=== PATIENT | male | born 1975 | race Caucasian/White ===

== ENCOUNTER 2017-03-27 12:08 | Emergency (ER) | payer BC ==
--- NOTE | 2017-03-27 12:51 | EDM.PDOC ---
[id number] 4d LT SHOULDER PAIN/SOB Time Seen by Provider: 03/27/17 12:50 Source of Information: Reports: Patient History Limitations: Reports: No Limitations - History of Present Illness INITIAL COMMENTS - FREE TEXT/NARRATIVE: pt arrived after having an episode of chest pain and palpitation. he was on the way to the clinic when this occurred. Onset: Today, Sudden Duration: Hour(s): Location: Reports: Chest, Upper Extremity, Left Associated Symptoms: Reports: Chest Pain, Other ( shoulder pain. ) Left Shoulder Pain Score (Numeric/FACES): 6 - Related Data Allergies Allergy/AdvReac Type Severity Reaction Status Date / Time No Known Allergies Allergy Verified 03/27/17 12:39 Home Meds: Home Meds Omeprazole Magnesium [Prilosec Otc] 20 mg PO DAILY 03/27/17 [History] Past Medical History - Past Surgical History GI Surgical History: Reports: Hernia Repair/Other Social & Family History - Tobacco Use Smoking Status *Q: Never Smoker - Caffeine Use Caffeine Use: Reports: Coffee - Alcohol Use Days Per Week of Alcohol Use: 1 Number of Drinks Per Day: 4 Total Drinks Per Week: 4 - Recreational Drug Use Recreational Drug Use: No ED ROS GENERAL - Review of Systems Review Of Systems: See Below Constitutional: Reports: No Symptoms HEENT: Reports: No Symptoms Respiratory: Reports: Shortness of Breath Cardiovascular: Reports: Chest Pain Endocrine: Reports: No Symptoms GI/Abdominal: Reports: No Symptoms : Reports: No Symptoms Musculoskeletal: Reports: No Symptoms Skin: Reports: No Symptoms ED EXAM, GENERAL - Physical Exam Exam: See Below Free Text/Narrative:: pt arrived with a history of left shoulder pain and left chest pain with palpapation. Exam Limited By: No Limitations General Appearance: Alert, Mild Distress Ears: Normal TMs Nose: Normal Inspection Throat/Mouth: Normal Inspection Head: Atraumatic Neck: Normal Inspection Respiratory/Chest: No Respiratory Distress Cardiovascular: Other (left side chest pain. feel sob. ) GI/Abdominal: Soft, Non-Tender (Male) Exam: Deferred Rectal (Males) Exam: Deferred Back Exam: Normal Inspection Extremities: Normal Inspection Neurological: Alert, Oriented, Normal Cognition Psychiatric: Normal Affect Course - Vital Signs Last Recorded V/S: Last Vital Signs Temp 35.4 C 03/27/17 12:27 Pulse 74 03/27/17 17:14 Resp 16 03/27/17 14:49 BP 116/72 03/27/17 17:14 Pulse Ox 98 03/27/17 12:27 - Orders/Labs/Meds Orders: Active Orders 24 hr Category Date Time Status EKG Documentation Completion [RC] ASDIRECTED Care 03/27/17 12:51 Active EKG 12 Lead [EK] Routine Ther 03/27/17 12:51 Ordered Labs: Laboratory Tests 03/27/17 03/27/17 03/27/17 Range/Units 12:54 12:54 12:54 WBC 6.5 (4.5-11.0) K/uL RBC 4.88 (4.30-5.90) M/uL Hgb 15.0 (12.0-15.0) g/dL Hct 42.2 (40.0-54.0) % MCV 87 (80-98) fL MCH 31 (27-31) pg MCHC 36 (32-36) % Plt Count 263 (150-400) K/uL Neut % (Auto) 57 (36-66) % Lymph % (Auto) 28 (24-44) % [place] % (Auto) 10 H (2-6) % Eos % (Auto) 4 (2-4) % Baso % (Auto) 1 (0-1) % Sodium 138 L (140-148) mmol/L Potassium 3.9 (3.6-5.2) mmol/L Chloride 103 (100-108) mmol/L Carbon Dioxide 29 (21-32) mmol/L Anion Gap 9.9 (5.0-14.0) mmol/L BUN 15 (7-18) mg/dL Creatinine 1.0 (0.8-1.3) mg/dL Est Cr Clr Drug Dosing 101.39 mL/min Estimated GFR (MDRD) > 60 (>60) Glucose 99 (74-106) mg/dL Calcium 8.8 (8.5-10.1) mg/dL Total Bilirubin 0.5 (0.2-1.0) mg/dL AST 33 (15-37) U/L ALT 61 (12-78) U/L Alkaline Phosphatase 86 (46-116) U/L Creatine Kinase 83 (39-308) U/L Troponin I < 0.017 (0.000-0.056) ng/mL Total Protein 7.4 (6.4-8.2) g/dL Albumin 4.0 (3.4-5.0) g/dL Globulin 3.4 (2.3-3.5) g/dL Albumin/Globulin Ratio 1.2 (1.2-2.2) 03/27/17 Range/Units 16:33 WBC (4.5-11.0) K/uL RBC (4.30-5.90) M/uL Hgb (12.0-15.0) g/dL Hct (40.0-54.0) % MCV (80-98) fL MCH (27-31) pg MCHC (32-36) % Plt Count (150-400) K/uL Neut % (Auto) (36-66) % Lymph % (Auto) (24-44) % [place] % (Auto) (2-6) % Eos % (Auto) (2-4) % Baso % (Auto) (0-1) % Sodium (140-148) mmol/L Potassium (3.6-5.2) mmol/L Chloride (100-108) mmol/L Carbon Dioxide (21-32) mmol/L Anion Gap (5.0-14.0) mmol/L BUN (7-18) mg/dL Creatinine (0.8-1.3) mg/dL Est Cr Clr Drug Dosing mL/min Estimated GFR (MDRD) (>60) Glucose (74-106) mg/dL Calcium (8.5-10.1) mg/dL Total Bilirubin (0.2-1.0) mg/dL AST (15-37) U/L ALT (12-78) U/L Alkaline Phosphatase (46-116) U/L Creatine Kinase (39-308) U/L Troponin I < 0.017 (0.000-0.056) ng/mL Total Protein (6.4-8.2) g/dL Albumin (3.4-5.0) g/dL Globulin (2.3-3.5) g/dL Albumin/Globulin Ratio (1.2-2.2) Meds: Medications Discontinued Medications Generic Name Dose Route Start Last Admin Trade Name Freq PRN Reason Stop Dose Admin Aspirin 324 mg 03/27/17 14:39 03/27/17 14:44 Aspirin PO 03/27/17 14:40 324 mg ONETIME ONE Administration Nitroglycerin 0.4 mg 03/27/17 14:39 03/27/17 14:44 Nitrostat SL 03/27/17 14:50 0.4 mg Q5M PRN Administration Chest Pain - Re-Assessments/Exams Free Text/Narrative Re-Assessment/Exam: 03/27/17 14:43 Pt had a normal trop, minor inferior s-t changes. Her has low grade discomfort. Will give a nitro and asa. His rhythm is stable at this point. Departure - Departure Time of Disposition: 14:44 Disposition: Home, Self-Care 01 Condition: Fair Clinical Impression: Left sided chest pain - Discharge Information Instructions: Nonspecific Chest Pain Referrals: PCP,None [Primary Care Provider] - Forms: ED Department Discharge Care Plan Goals: pt is to return tomorrow for a exercise cardiolyte stress test, If pain should get worse tonight return, . - My Orders Last 24 Hours: My Active Orders 03/27/17 12:51 EKG Documentation Completion [RC] ASDIRECTED EKG 12 Lead [EK] Routine - Assessment/Plan Last 24 Hours: My Active Orders 03/27/17 12:51 EKG Documentation Completion [RC] ASDIRECTED EKG 12 Lead [EK] Routine
--- NOTE | 2017-03-27 13:56 | CR ---
Chest 1V Frontal HISTORY: Left-sided chest pain. Comparison: 01/11/2013. FINDINGS: Cardiac size and pulmonary vessels are normal. The lungs are clear. IMPRESSION: Negative AP chest.
[2017-03-27] MEDS ORDERED: Nitroglycerin 0.4 MG Tab.SL SL PRN (14:39)
[2017-03-27] MEDS ORDERED: Aspirin 81 MG Tab.Chew PO ONE (14:39)
[2017-03-27 17:22] VITALS: BP 116/72
--- NOTE | 2017-03-27 18:20 | PCM.CONS ---
H&P History of Present Illness - General Date of Service: 03/27/17 Source of Information: Patient, Provider, RN Notes Reviewed History Limitations: Reports: No Limitations - History of Present Illness Initial Comments - Free Text/Narative: This patient is a 41-year-old gentleman who I been asked to see by Dr. Staton for further suggestions concerning evaluation and management of recent chest and left shoulder pain. Over the past few weeks as noted pain or an ache in his left shoulder, it was relatively mild in intensity and would occur only in intermittently. He felt that it would be worse after he was active but did not hurt at the time of activity. It has become progressively worse over the past 2 days to the point where it has been present most of the time. He does not feel that there is an exertional component. He does note that when he lies back it seems to be worse. He was coming into the clinic today to have it evaluated when he noted an episode of rapid heart rate with mild nausea and lightheadedness. He did not feel that the pain became significantly worse during this period of time. Initial troponin level is within normal range, EKG shows nonspecific slight ST segment depression in the inferior leads. He has no risk factors for coronary artery disease. Left Shoulder Pain Score (Numeric/FACES): 6 - Related Data Allergies/Adverse Reactions: Allergies Allergy/AdvReac Type Severity Reaction Status Date / Time No Known Allergies Allergy Verified 03/27/17 12:39 Home Medications: Home Meds Omeprazole Magnesium [Prilosec Otc] 20 mg PO DAILY 03/27/17 [History] Past Medical History - Past Surgical History GI Surgical History: Reports: Hernia Repair/Other Social & Family History - Tobacco Use Smoking Status *Q: Never Smoker - Caffeine Use Caffeine Use: Reports: Coffee - Alcohol Use Days Per Week of Alcohol Use: 1 Number of Drinks Per Day: 4 Total Drinks Per Week: 4 - Recreational Drug Use Recreational Drug Use: No H&P Review of Systems - Review of Systems: Review Of Systems: See Below Pulmonary: Reports: No Symptoms. Denies: Shortness of Breath Cardiovascular: Reports: Chest Pain, Palpitations. Denies: Dyspnea on Exertion , Orthopnea, PND, Edema Gastrointestinal: Reports: No Symptoms Genitourinary: Reports: No Symptoms Exam - Exam Exam: See Below - Vital Signs Vital Signs: Last Vital Signs Temp 95.8 F 03/27/17 12:27 Pulse 74 03/27/17 17:14 Resp 16 03/27/17 14:49 BP 116/72 03/27/17 17:14 Pulse Ox 98 03/27/17 12:27 Weight: 196 lb 6.91 oz - Exam General: Alert, Oriented, Cooperative Neck: Supple, Trachea Midline, +2 Carotid Pulse wo Bruit Lungs: Clear to Auscultation, Normal Respiratory Effort Cardiovascular: Regular Rate, Regular Rhythm, Normal S1, Normal S2. No: Systolic Murmur, Diastolic Murmur Abdomen: Normal Bowel Sounds, Soft Back Exam: Normal Inspection, Full Range of Motion, NT - Patient Data Lab Results Last 24 hrs: Laboratory Results - last 24 hr 03/27/17 03/27/17 03/27/17 Range/Units 12:54 12:54 12:54 WBC 6.5 (4.5-11.0) K/uL RBC 4.88 (4.30-5.90) M/uL Hgb 15.0 (12.0-15.0) g/dL Hct 42.2 (40.0-54.0) % MCV 87 (80-98) fL MCH 31 (27-31) pg MCHC 36 (32-36) % Plt Count 263 (150-400) K/uL Neut % (Auto) 57 (36-66) % Lymph % (Auto) 28 (24-44) % [place] % (Auto) 10 H (2-6) % Eos % (Auto) 4 (2-4) % Baso % (Auto) 1 (0-1) % Sodium 138 L (140-148) mmol/L Potassium 3.9 (3.6-5.2) mmol/L Chloride 103 (100-108) mmol/L Carbon Dioxide 29 (21-32) mmol/L Anion Gap 9.9 (5.0-14.0) mmol/L BUN 15 (7-18) mg/dL Creatinine 1.0 (0.8-1.3) mg/dL Est Cr Clr Drug Dosing 101.39 mL/min Estimated GFR (MDRD) > 60 (>60) Glucose 99 (74-106) mg/dL Calcium 8.8 (8.5-10.1) mg/dL Total Bilirubin 0.5 (0.2-1.0) mg/dL AST 33 (15-37) U/L ALT 61 (12-78) U/L Alkaline Phosphatase 86 (46-116) U/L Creatine Kinase 83 (39-308) U/L Troponin I < 0.017 (0.000-0.056) ng/mL Total Protein 7.4 (6.4-8.2) g/dL Albumin 4.0 (3.4-5.0) g/dL Globulin 3.4 (2.3-3.5) g/dL Albumin/Globulin Ratio 1.2 (1.2-2.2) 03/27/17 Range/Units 16:33 WBC (4.5-11.0) K/uL RBC (4.30-5.90) M/uL Hgb (12.0-15.0) g/dL Hct (40.0-54.0) % MCV (80-98) fL MCH (27-31) pg MCHC (32-36) % Plt Count (150-400) K/uL Neut % (Auto) (36-66) % Lymph % (Auto) (24-44) % [place] % (Auto) (2-6) % Eos % (Auto) (2-4) % Baso % (Auto) (0-1) % Sodium (140-148) mmol/L Potassium (3.6-5.2) mmol/L Chloride (100-108) mmol/L Carbon Dioxide (21-32) mmol/L Anion Gap (5.0-14.0) mmol/L BUN (7-18) mg/dL Creatinine (0.8-1.3) mg/dL Est Cr Clr Drug Dosing mL/min Estimated GFR (MDRD) (>60) Glucose (74-106) mg/dL Calcium (8.5-10.1) mg/dL Total Bilirubin (0.2-1.0) mg/dL AST (15-37) U/L ALT (12-78) U/L Alkaline Phosphatase (46-116) U/L Creatine Kinase (39-308) U/L Troponin I < 0.017 (0.000-0.056) ng/mL Total Protein (6.4-8.2) g/dL Albumin (3.4-5.0) g/dL Globulin (2.3-3.5) g/dL Albumin/Globulin Ratio (1.2-2.2) Result Diagrams: 03/27/17 12:54 03/27/17 12:54 Consult PN Assessment/Plan Procedures: Procedures EGD DIAGNOSTIC BRUSH WASH (03/11/14) US EXAM ABDOM COMPLETE (03/09/14) Problem List Initiated/Reviewed/Updated: Yes Plan: ASSESSMENT AND RECOMMENDATIONS CHEST AND LEFT SHOULDER PAIN-pain has been somewhat atypical, he has no risk factors for coronary artery disease. Initial troponin and follow-up troponin 3 hours later are both within normal range, EKG shows only slight nonspecific ST segment change. HEART score is 2. -Given 2 normal troponin levels and a HEART score of 2, he can be safely discharged home. -Schedule exercise Cardiolite study in a.m. -Schedule follow-up appointment with primary care provider within a day or 2 to review results of Cardiolite study. Requesting Provider: SAM Date Consult Requested: 03/27/17 Reason for Consult: Chest pain Patient History Reviewed: Yes Notified Requestor: Yes
== END 2017-03-27 19:21 | disposition home or self-care (01) ==
LOC: JP.ED 12:08
DX: R07.9 Chest pain, unspecified (principal); Z98.890 Other specified postprocedural states; Z79.899 Other long term (current) drug therapy
CPT/HCPCS: 36415; 71010; 80053; 82550; 84484; 85025; 93005; 99285; A9270

== ENCOUNTER → 2019-01-08 | Outpatient (CLI) | payer BC ==
--- NOTE | 2019-01-08 10:36 | NM ---
HEPATOBILIARY SCAN WITH EJECTION FRACTION: Clinical History: Right upper quadrant pain Multiple images of the hepatobiliary system were obtained following the IV injection of 5.22 mCi of technetium 99m Choletec. 60 minutes into the study the patient was given1.82 mcg of CCK via a slow IV push. The this elicited right upper quadrant pain similar to her symptoms]Quantitative analysis of the gallbladder was performed. Findings: There is a normal pattern of hepatic uptake. Biliary activity is seen at 5minutes. Gallbladder activity is seen at 30minutes. Intestinal activity is seen at 15minutes. Following the Kinevac infusion the gallbladder ejection fraction was calculated at 22.1%. Impression:Normal visualization of the hepatobiliary tree The gallbladder ejection fraction wasabnormally low at 22%
== END ==
LOC: JP.NM 07:16
PROVIDERS: ATTEND Internal Medicine Gastroenterology
DX: R10.11 Right upper quadrant pain (principal); G89.29 Other chronic pain
CPT/HCPCS: 78227; 78227-26

== ENCOUNTER 2019-07-11 17:37 | Emergency (ER) | payer BC ==
[2019-07-11] MEDS ORDERED: Ibuprofen 600 MG Tab PO ONE (18:33)
[2019-07-11 18:46] VITALS: BP 119/70; PULSE 85
--- NOTE | 2019-07-11 19:00 | EDM.PDOC ---
ED HPI GENERAL MEDICAL PROBLEM - General Chief Complaint: Upper Extremity Injury/Pain Stated Complaint: L ARM PAIN Time Seen by Provider: 07/11/19 18:30 Source of Information: Reports: Patient History Limitations: Reports: No Limitations - History of Present Illness INITIAL COMMENTS - FREE TEXT/NARRATIVE: 43-year-old male with left-sided arm pain for the past 2-3 days, left-sided chest discomfort which is persistent. He cannot reproduce the pain with breathing or movement of his arm. He has no significant shortness of breath, diaphoresis, nausea or vomiting. It responded to ibuprofen 3 days ago he has not taken any since. He did have a stress test last year that he did well. Onset: Unknown/Unsure Duration: Day(s): (3 days) Location: Reports: Chest, Upper Extremity, Left Associated Symptoms: Reports: No Other Symptoms, Other (Patient is fairly anxious, minimal shortness of breath with activity) - Related Data Allergies Allergy/AdvReac Type Severity Reaction Status Date / Time No Known Allergies Allergy Verified 07/11/19 18:03 Home Meds: Home Meds NK [No Known Home Meds] 07/11/19 [History] Past Medical History - Past Surgical History GI Surgical History: Reports: Cholecystectomy, Hernia Repair/Other Social & Family History - Tobacco Use Smoking Status *Q: Never Smoker - Caffeine Use Caffeine Use: Reports: Coffee Review of Systems - Review of Systems Review Of Systems: See Below Constitutional: Denies: Fever Eyes: Reports: No Symptoms Respiratory: Reports: Shortness of Breath (Intermittent mild shortness of breath with activity) Cardiovascular: Reports: Chest Pain (Left upper anterior pain). Denies: Lightheadedness GI/Abdominal: Reports: No Symptoms Genitourinary: Reports: No Symptoms Musculoskeletal: Reports: Arm Pain (Left side) Skin: Reports: No Symptoms Neurological: Denies: Headache, Paresthesia (Pain in his left arm but no paresthesia or numbness) Psychiatric: Reports: Anxiety ED EXAM, GENERAL - Physical Exam Exam: See Below Exam Limited By: No Limitations General Appearance: Alert, No Apparent Distress, Other (Looks comfortable, anxious) Head: Atraumatic Respiratory/Chest: No Respiratory Distress, Lungs Clear Cardiovascular: Regular Rate, Rhythm. No: Extra Beats Extremities: Normal Inspection (I cannot reproduce his pain with palpation or movement of the left arm. There is no asymmetry, discoloration or rash) Neurological: Alert, Oriented EKG INTERPRETATION Rhythm: NSR Course - Vital Signs Last Recorded V/S: Last Vital Signs Temp 96.8 F 07/11/19 18:11 Pulse 85 07/11/19 18:45 Resp 12 07/11/19 18:45 BP 119/70 07/11/19 18:45 Pulse Ox 96 07/11/19 18:45 - Orders/Labs/Meds Orders: Active Orders 24 hr Category Date Time Status EKG Documentation Completion [RC] ASDIRECTED Care 07/11/19 18:33 Active EKG 12 Lead [EK] Routine Ther 07/11/19 18:33 Ordered Labs: Laboratory Tests 07/11/19 07/11/19 Range/Units 18:50 18:50 WBC 8.4 (4.5-11.0) K/uL RBC 4.84 (4.30-5.90) M/uL Hgb 14.8 (12.0-15.0) g/dL Hct 42.9 (40.0-54.0) % MCV 89 (80-98) fL MCH 31 (27-31) pg MCHC 35 (32-36) % Plt Count 279 (150-400) K/uL Neut % (Auto) 66 (36-66) % Lymph % (Auto) 20 L (24-44) % [place] % (Auto) 9 H (2-6) % Eos % (Auto) 5 H (2-4) % Baso % (Auto) 0 (0-1) % Sodium 140 (140-148) mmol/L Potassium 3.3 L (3.6-5.2) mmol/L Chloride 104 (100-108) mmol/L Carbon Dioxide 28 (21-32) mmol/L Anion Gap 11.3 (5.0-14.0) mmol/L BUN 19 H (7-18) mg/dL Creatinine 1.1 (0.8-1.3) mg/dL Est Cr Clr Drug Dosing 90.33 mL/min Estimated GFR (MDRD) > 60 (>60) Glucose 105 (74-106) mg/dL Calcium 8.9 (8.5-10.1) mg/dL Troponin I < 0.017 (0.000-0.056) ng/mL Meds: Medications Discontinued Medications Generic Name Dose Route Start Last Admin Trade Name Freq PRN Reason Stop Dose Admin Ibuprofen 600 mg 07/11/19 18:33 07/11/19 19:02 Motrin PO 07/11/19 18:34 600 mg ONETIME ONE Administration - Re-Assessments/Exams Free Text/Narrative Re-Assessment/Exam: 07/11/19 18:59 Two-view chest x-ray, EKG, CBC CMP and troponin are obtained. He was given 600 mg of ibuprofen. I suspect that this is some type of musculoskeletal or myofascial discomfort, not cardiac and his tests should be reassuring. 07/11/19 19:29 EKG was normal, two-view chest x-ray normal and labs were reassuring with a troponin of 0. This was explained to the patient, he'll continue with anti- inflammatories through the weekend and increase activity as tolerated. Recheck next week if not improving. Departure - Departure Time of Disposition: 19:36 Disposition: Home, Self-Care 01 Condition: Good Clinical Impression: Atypical chest pain - Discharge Information Instructions: Nonspecific Chest Pain, [id number] Referrals: Elio Barnard MD [Primary Care Provider] - Forms: ED Department Discharge Care Plan Goals: Continue with regular activity, and anti-inflammatories on a regular basis through the weekend should be beneficial. Recheck next week if not improving satisfactorily. Return anytime if worsening or concerns. - My Orders Last 24 Hours: My Active Orders 07/11/19 18:33 EKG Documentation Completion [RC] ASDIRECTED EKG 12 Lead [EK] Routine - Assessment/Plan Last 24 Hours: My Active Orders 07/11/19 18:33 EKG Documentation Completion [RC] ASDIRECTED EKG 12 Lead [EK] Routine
--- NOTE | 2019-07-11 19:24 | CRLCR ---
INDICATION: Dyspnea COMPARISON: None TECHNIQUE: Frontal and lateral views of the chest FINDINGS: The lungs are clear. The cardiomediastinal silhouette is normal. There is no pleural effusion or pneumothorax. The osseous structures are unremarkable. IMPRESSION: No acute process. Dictated by Zahra Shine MD @ Jul 11 2019 7:22PM Signed by Dr. Zahra Shine @ Jul 11 2019 7:22PM
== END 2019-07-11 19:36 | disposition home or self-care (01) ==
LOC: JP.ED 17:37
DX: R07.89 Other chest pain (principal)
CPT/HCPCS: 36415; 71046; 80048; 84484; 85025; 93005; 99285; A9270